=== PATIENT | male | born 1955 | race Caucasian/White ===

== ENCOUNTER → 2016-08-14 11:05 | Outpatient (CLI) | payer MEDICARE ==
[2015-11-30 13:38] VITALS: BMI 21.4
[~2016-08-14 11:05] MED LIST: ASPIRIN325 MG PO; DALIRESP500 MCG PO; FLORASTOR250 MG PO; GABAPENTIN100 MG PO; GLUCOPHAGE1000 MG PO; HYDROCODONE-APA1 TAB PO; IPRAT-ALBUT 0.5-3 ML INH; JANUVIA100 MG PO; LEVAQUIN750 MG PO; LEVEMIR100 U/M1 SC; MUCINEX DM ER1 EAC1 PO; NICODERM C1 PATCH .2 TRANSDERM; PEPCID20 MG PO; PRAVACHOL20 MG PO; PREDNISONE10 MG PO; PREDNISONE20 MG PO; SINGULAIR10 MG PO; SYMBICORT 16010.2 GM INH; TESSALON PERLE100 MG PO
== END | disposition home or self-care (01) ==
LOC: D.CT 11:00
DX: R93.8 Abnormal findings on diagnostic imaging of other specified body structures (principal)

== ENCOUNTER → 2016-09-14 07:42 | Outpatient (CLI) | payer MEDICARE ==
[2015-11-30 13:38] VITALS: BMI 21.4
== END ==
LOC: D.MRI 07:42
DX: M54.5 Low back pain (principal)

== ENCOUNTER 2018-05-01 11:23 | Inpatient (IN) | payer MEDICARE ==
[2018-05-01] VITALS (7 sets, daily range): BP systolic 176–196; BP diastolic 74–95; BMI 25.9; BMI 42.5
[~2018-05-01] VITALS: Ht 175.3 cm; Wt 130.2 kg
--- NOTE | ~2018-05-01 | HEMODYNAMI ---
PATIENT:MICHEAL POWELL MEDICAL RECORD: [id number] : 53 LOCATION:D.CAT ADMISSION DATE: 05/01/18 Generatedon:05/01/201815:57 Patient name: MICHEAL POWELL Patient #: [id number] SSN: : 1955 Date of study: 05/01/2018 Page: Of Hemodynamic Procedure Report Patient Data Patient Demographics Procedure consent was obtained First Name: MICHEAL Gender: Male Last Name: ANDRE : 1955 [facility] Initial: TAM Age: 62 year(s) Patient #: [id number] Race: Additional ID: [id number] Contact details [address]: [address] [place] [address] ROAD State: [place] City: [place] Zip code: [address] Past Medical History Allergies: No known allergies Admission Admission Data Admission Date: 05/01/2018 Admission Time: 11:23 Lab Results Lab Result Date: 05/01/2018 Lab Result Time: 0:00 Biochemistry Name Units Result Min Max BUN mg/dl 32 --(----)-* 7 18 Creatinine mg/dl 1.4 --(----)*- 0.6 1.3 CBC Name Units Result Min Max Hemoglobin g/dl 15 --(-*--)-- 13.5 17.5 Procedure Procedure Types Cath Procedure Diagnostic Procedure [facility] w/Coronaries Sedation Charges Moderate Sedation up to 30 minutes Peripheral Cath Diagnostic Procedure Armature Varnisher Peripheral Procedures Chwmt-Ckuczua-Bpv-Off Procedure Description Procedure Date Procedure Date: 05/01/2018 Procedure Start Time: 14:04 Procedure End Time: 14:43 Procedure Staff Name Function Josefina Upton RN Nurse John Cantu MD Performing Physician Rosalio Jimenez RT Scrub Marryagnes Martinez RT Monitor Janice Curiel RT Monitor Procedure Data Cath Procedure Fluoroscopy Diagnostic fluoroscopy Total fluoroscopy Time: 4.6 time: 4.6 min min Diagnostic fluoroscopy Total fluoroscopy dose: dose: 1022 mGy 1022 mGy Contrast Material Contrast Material Type Amount (ml) Isovue 300 114 Entry Location Entry Primary Successful Side Size Upsize Upsize Entry Closure Marin ccessful Closure Location (Fr) 1 (Fr) 2 (Fr) Remarks Device Remarks Femoral Right 5 Fr Manual vein Compression Femoral Right 5 Fr Exoseal artery Estimated blood loss: 5 ml Diagnostic catheters Device Type Used For End Catheter Placement MULTIPACK JL 4.0 5Fr Procedure catheter DIAGNOSTIC JL 5 5Fr Procedure catheter ([id number]) MULTIPACK 3DRC 5Fr Procedure catheter MULTIPACK Pigtail 5 Fr Procedure catheter Procedure Complications No complications Procedure Medications Medication Administration Route Dosage Oxygen 6 l/min Dextrose 50% I.V. 12.5 g Versed I.V. 1 mg Fentanyl I.V. 50 mcg Lidocaine 2% added to field 20 Heparin Flush Bag added to field 2 bags (1000units/500ml NS) 0.9% NaCl I.V. 100 ml/hr Versed I.V. 0.5 mg Fentanyl I.V. 25 mcg Narcan I.V. 0.4 mg Oxygen NRB 16 l/min unlisted medication 0.63 mg Oxygen 6 l/min Oxygen Hemodynamics Rest HGB: 15 (g/dl) Heart Rate: 84 (bpm) Pressure Samples Time Site Value (mmHg) Purpose Heart Use Rate(bpm) 14:19 LV 220/-10,26 Snapshot 101 14:24 AO 265/104(152) Snapshot 108 Gradients Valve Time Site Site Mean SEP/DFP Peak To Heart Use 1 2 (mmHg) (sec/min) Peak Rate (mmHg) (bpm) Aortic 14:20 LV AO 101 Snapshots Pre Cath Intra NCS Post Cath Vital Signs Time Heart Resp SPO2 etCO2 NIBP (mmHg) Rhythm Pain Sedation Rate (ipm) (%) (mmHg) Status Level (bpm) 13:51:36 87 36 100 18 181/106(140) NSR 0 (11) 10(A) , No pain 13:56:02 86 28 100 15.8 183/105(121) NSR 0 (11) 10(A) , No pain 14:01:01 89 19 100 3.7 Measuring NSR 0 (11) 10(A) , No pain 14:05:48 78 16 95 12 111/63(85) NSR 0 (11) 9(A) , No pain 14:11:52 85 14 97 0 158/99(128) NSR 0 (11) 9(A) , No pain 14:17:14 92 12 96 0 204/105(145) NSR 0 (11) 9(A) , No pain 14:21:57 99 14 97 0 211/118(148) NSR 0 (11) 9(A) , No pain 14:26:39 105 14 98 0 219/123(158) NSR 0 (11) 9(A) , No pain 14:31:26 109 16 98 0 224/118(160) NSR 0 (11) 9(A) , No pain 14:36:17 110 18 98 0 221/122(157) NSR 0 (11) 9(A) , No pain 14:41:05 110 19 97 0 225/121(155) NSR 0 (11) 9(A) , No pain 15:16:50 105 28 97 0 210/114(161) NSR 0 (11) 9(A) , No pain 15:21:39 106 27 97 0 205/131(155) NSR 0 (11) 9(A) , No pain 15:26:38 103 29 0 Measuring NSR 0 (11) 9(A) , No pain 15:27:44 117 28 0 Disturbed NSR 0 (11) 9(A) , No pain 15:32:42 98 25 66 0 Measuring NSR 0 (11) 9(A) , No pain 15:33:23 140 17 76 0 Disturbed NSR 0 (11) 9(A) , No pain 15:38:22 11 81 0 Measuring NSR 0 (11) 9(A) , No pain 15:39:03 98 21 81 0 Disturbed NSR 0 (11) 9(A) , No pain 15:44:02 93 18 0 Measuring NSR 0 (11) 9(A) , No pain 15:45:10 92 19 74 0 Out of range NSR 0 (11) 9(A) , No pain 15:50:09 91 26 72 0 Measuring NSR 0 (11) 9(A) , No pain 15:50:44 0 Out of range NSR 0 (11) 9(A) , No pain 15:54:19 0 No Cuff NSR 0 (11) 9(A) , No pain Medications Time Medication Route Dose Verified Delivered Reason Notes Effectiveness by by 13:49:05 Oxygen simple 6 l/min John Buffie for low 02 pt sta sonia mask Pepe Upton RN sats sob, and has performed one of his daily asthma inhaler doses today, dr cantu notified. pt has rhonch bilat lung martinez. 13:50:06 Lidocaine 2% added to 20ml John John for local field vial Pepe Cantu MD anesthetic 13:50:21 Heparin Flush added to 2 bags John John used for Bag field Pepe Cantu MD procedure (1000units/500ml NS) 13:50:27 0.9% NaCl I.V. 100 John Buffie Per ml/hr Pepe Upton RN physician 13:57:13 Versed I.V. 1 mg John Buffie for Pepe Upton RN sedation 13:57:19 Fentanyl I.V. 50 mcg John Buffie for Pepe Upton RN sedation 14:04:47 Versed I.V. 0.5 mg John Buffie for Pepe Upton RN sedation 14:04:53 Fentanyl I.V. 25 mcg John Buffie for Pepe Upton RN sedation 14:15:10 Dextrose 50% I.V. 12.5 g John Buffie Per Pepe Upton RN physician 14:54:15 Narcan I.V. 0.4 mg John Buffie for Pepe Upton RN arrousal 15:12:07 Oxygen NRB 16 John Buffie for low 02 pt l/min Pepe Upton RN sats remains confused, updraft treatment and abg ordered to be performed in [employer]. 15:18:54 Xopenex updraft updraft 0.63 mg John Buffie Per treatment Pepe Upton RN physician 15:30:24 Oxygen simple 6 l/min John Buffie for low 02 mask Pepe Upton RN sats 15:37:59 Oxygen simple removed John Buffie for low 02 mask Pepe Upton RN sats Procedure Log Time Note 12:54:45 Pt brought to [employer], appears sleepy, able to answer some questions appropriately. States very SOB. 13:30:58 Rosalio Jimenez RT(R) sent for patient. Start room use. 13:33:43 Signed procedure consent form obtained from patient. 13:33:51 H&P Date Dictated: 04/18/2018 Within 30 days and on chart., H&P Addendum completed by physician on day of procedure. (MUST COMPLETE FOR ALL OUTPATIENTS). 13:33:53 Time tracking: Regular hours (M-F 7:00 - 5:00) 13:33:56 Plan of Care:Hemodynamics will remain stable., Cardiac rhythm will remain stable., Comfort level will be maintained., Respiratory function will remain adequate., Patient/ family verbilizes understanding of procedure., Procedure tolerated without complication., Recovers from procedure without complications.. 13:34:15 Patient allergic to No known allergies 13:39:41 Patient received from Pre/Post Procedure Room to CCL 1 Alert and oriented. Tansferred to table in Supine position. 13:39:42 Warm blankets applied, and sindi hugger turned on for patient comfort. 13:39:42 Correct patient and procedure confirmed by team. 13:39:43 ECG and BP/O2 sat monitors applied to patient. 13:49:05 Oxygen 6 l/min simple mask was administered by Josefina Upton RN; for low 02 sats; pt states sob, and has performed one of his daily asthma inhaler doses today, dr cantu notified. pt has rhonch bilat lung martinez. 13:50:06 Lidocaine 2% 20ml vial added to field was administered by John Cantu MD; for local anesthetic; 13:50:14 Vital chart was started 13:50:21 Heparin Flush Bag (1000units/500ml NS) 2 bags added to field was administered by John Cantu MD; used for procedure; 13:50:27 0.9% NaCl 100 ml/hr I.V. was administered by Josefina Upton RN; Per physician; 13:53:14 Baseline sample Acquired. 13:53:18 Rhythm: sinus rhythm 13:53:19 Full Disclosure recording started 13:53:20 Pre-procedure instructions explained to patient. 13:53:20 Pre-op teaching completed and patient verbalized understanding. 13:53:21 Family in patients room. 13:53:23 Patient NPO since Midnight. 13:53:25 Is patient on blood thinner?No 13:53:26 Patient diabetic? Yes. 13:53:28 If diabetic: On Metformin? Yes 13:53:30 If on Metformin: Last Dose? 04/29/2018 13:53:33 Previous problem with sedation/anesthesia? No ? 13:53:34 Snore? Yes 13:53:35 Sleep apnea? Yes 13:53:36 Deviated septum? No 13:53:37 Opens mouth fully? Yes 13:53:38 Sticks out tongue? Yes 13:53:41 Airway obstruction? Yes ASTHMA, COPD 13:53:44 Dentures? Yes OUT 13:53:49 Pre procedure: right dorsailis pedis pulse Doppler 13:53:52 Pre procedure: left dorsailis pedis pulse 1+ Palpable, but thready & weak; easily obliterated 13:53:55 Patient pain scale 0/10 ?. 13:54:03 IV patent on arrival in right hand with 0.9% NaCl at [facility]. 13:54:07 Lab results completed and on chart. 13:54:10 Bilateral groins area was prepped with chlora-prep and draped in sterile fashion 13:54:11 Alarms reviewed by R. N. 13:54:11 Sharps counted by scrub and verified by R.N. 13:54:15 Use device set Femoral Dx 13:54:17 ACIST Syringe (06482) opened to sterile field. 13:54:18 Bag Decanter (2002S) opened to sterile field. 13:54:19 ACIST Hand Control (33781) opened to sterile field. 13:54:19 ACIST Manifold (84282) opened to sterile field. 13:54:20 Tegaderm 4 x 4 (1626W) opened to sterile field. 13:54:21 Medline Cath Pack ([id number]) opened to sterile field. 13:54:22 DIAGNOSTIC WIRE .035 260cm J wire (168038) opened to sterile field. 13:54:23 DIAGNOSTIC Multipack 5Fr catheter set (NO5495) opened to sterile field. 13:54:33 SHEATH 6FR Barnett ([id number]) opened to sterile field. 13:55:58 --------ALL STOP TIME OUT------ 13:55:59 Final Timeout: patient, procedure, and site verified with staff and physician. All members of the team are in agreement. 13:56:00 Bilateral groins site verified by team. 13:56:05 Physical assessment completed. ASA score P 2 - A patient with mild systemic disease as per John Cantu MD. 13:56:08 Sedation plan: IV Moderate Sedation Medication:Versed, Fentanyl 13:57:13 Versed 1 mg I.V. was administered by Josefina Upton RN; for sedation; 13:57:19 Fentanyl 50 mcg I.V. was administered by Josefina Upton RN; for sedation; 14:03:42 Procedure started. 14:03:56 Zero performed for pressure channel P1 14:04:19 Local anesthetic to right femoral artery with Lidocaine 2% by John Cantu MD.INITIAL ACCESS ONLY 14:04:47 Versed 0.5 mg I.V. was administered by Josefina Upton RN; for sedation; 14:04:53 Fentanyl 25 mcg I.V. was administered by Josefina Upton RN; for sedation; 14:09:22 A 5 Fr sheath was inserted into the Right Femoral vein 14:10:14 Lab Result : Hemoglobin 15 g/dl 14:10:14 Lab Result : BUN 32 mg/dl 14:10:14 Lab Result : Creatinine 1.4 mg/dl 14:10:48 A 5 Fr sheath was inserted into the Right Femoral artery 14:11:50 A MULTIPACK JL 4.0 5Fr catheter was advanced over the wire and used for Procedure. 14:12:41 unable to engage LCA 14:12:42 Catheter removed. 14:12:51 A DIAGNOSTIC JL 5 5Fr catheter ([id number]) was advanced over the wire and used for Procedure. 14:15:09 LCA angiography performed. 14:15:10 Dextrose 50% 12.5 g I.V. was administered by Josefina Upton RN; Per physician; 14:15:52 Pt became diaphoretic, suspected low glucose level. 14:16:20 Catheter exchanged over wire. 14:17:55 A MULTIPACK 3DRC 5Fr catheter was advanced over the wire and used for Procedure. 14:18:04 RCA angiography performed. 14:18:17 Catheter exchanged over wire. 14:19:17 A MULTIPACK Pigtail 5 Fr catheter was advanced over the wire and used for Procedure. 14:19:22 LV gram done using TOSCANO 14:19:30 Injector settings: Ml/sec: 102, Volume: 20, 14:19:50 LV hemodynamics recorded. 14:20:15 EF : 25 % 14:23:28 PIGTAIL PULLED DOWN FOR AFRO 14:24:32 Abdominal angiogram w/ runoff was performed. 14:27:44 Right leg runoff performed. 14:27:45 Left leg runoff performed. 14::51 Catheter removed. 14::57 EXOSEAL 5Fr (EX500) opened to sterile field. 14:29:07 Sheath removed intact; hemostasis achieved with Exoseal to the Right Femoral artery. 14:29:23 Sheath removed intact; hemostasis achieved with Manual Compression to the Right Femoral vein. 14:30:06 Procedure ended.(Physican Out) 14:30:55 Fluoroscopy time 04.60 minutes. 14::58 Flurop Dose total: 1022 14::58 Fluoroscopy dose: 1022 mGy 14:31:02 Contrast amount:Isovue 300 114ml. 14:31:03 Sharps counted by scrub and verified by R.N. 14:31:06 Post-op/insertion site Right Femoral artery dressed using a 4 x 4 and Tegaderm. 14:31:10 Post right femoral artery:stable, soft, clean and dry 14:31:15 Post-procedure physical assessment completed. ASA score P 2 - A patient with mild systemic disease as per John Cantu MD. 14:31:25 Post procedure rhythm: sinus tachycardia 14:31:32 Estimated blood loss: 5 ml 14:31:33 Post procedure instruction explained to patient.Patient verbalizes understanding. 14:31:33 Patient needs reinforcement of post procedure teaching. 14:32:05 Procedure type changed to Cath procedure, Diagnostic procedure, LHC, LHC w/Coronaries, Sedation Charges, Moderate Sedation up to 30 minutes, Peripheral Cath Diagnostic Procedure, Armature Varnisher Peripheral Procedures, Hsjkp-Uolncaf-Psh-Off 14:33:53 Procedure and supply charges have been captured, reviewed, submitted and are correct. 14:35:16 Procedure Complication : No complications 14:43:45 Vital chart was stopped 14:43:46 See physician's report for complete and final results. 14:43:51 Full Disclosure recording stopped 14::51 Procedure ended. 14:54:15 Narcan 0.4 mg I.V. was administered by Josefina Upton RN; for arrousal; 14:56:07 Pt cont to be snorous in respiration. Narcan used after FSBS result was 147 mg/dl. No changes noted to alertness. 15:00:30 Pt with improved alertness with romazicon. 15:12:07 Oxygen 16 l/min NRB was administered by Josefina Upton RN; for low 02 sats; pt remains confused, updraft treatment and abg ordered to be performed in grass farm [employer]. 15:14:07 Vital chart was started 15:18:54 Xopenex updraft 0.63 mg updraft treatment was administered by Josefina Upton RN; Per physician; 15:30:24 Oxygen 6 l/min simple mask was administered by Josefina Upton RN; for low 02 sats; 15:37:59 Oxygen removed simple mask was administered by Josefina Upton RN; for low 02 sats; 15:38:41 PORTABLE CHEST XRAY ORDERED. XRAY NOTIFIED 15:43:44 16fr standard chowdhury inserted no resistance clear yellow urine obtained. 15:44:01 CHOWDHURY 16FR w/Drainage Bag ([id number]) opened to sterile field. 15:44:37 CALLED FOR ICU BED 15:47:10 PATIENT TO BE TRANSFERRED TO ICU ROOM 2316 15:47:41 Report given to ICU. 15:53:08 chest xray completed. bipap intiated by respiratory. 15:56:44 Patient transfered to ICU with Bed. 15:56:55 End room use (Document Last) 15:57:26 Vital chart was stopped Device Usage Item Name Manufacture Quantity Catalog Hospital Part Current Minimal L ot# / Number Charge Number Stock Stock Serial# Code ACIST Acist 1 26913 158031 255577 644545 20 Syringe Medical (82402) Systems Inc Bag Microtek 1 2001S 715151 13554 745289 5 Decanter Medical Inc. () ACIST Hand Acist 1 67191 842784 292212 244803 5 Control Medical (55352) Systems Inc ACIST Acist 1 13979 798900 653779 249279 5 Manifold Medical (87021) Systems Inc Tegaderm 4 3M 1 1626W 578497 166047 409620 5 x 4 (1626W) Medline Medline 1 [id number] 511884 12989 843043 5 Cath Pack ([id number]) DIAGNOSTIC St Shane 1 257599 937946 200654 272302 30 WIRE .035 260cm J wire (768939) DIAGNOSTIC Cardinal 1 BP6312 900991 77480 703704 30 Anita Margarita 5Fr catheter set (HF3012) SHEATH 6FR Terumo 1 NVE505 378566 560675 181986 40 Barnett (ERO150) MULTIPACK Cardinal 1 115847 5 JL 4.0 5Fr Health catheter DIAGNOSTIC Cardinal 1 [id number] 161796 124055 540473 5 JL 5 5Fr Health catheter (352837R) MULTIPACK Cardinal 1 250665 5 3DRC 5Fr Health catheter MULTIPACK Cardinal 1 739422 5 Pigtail 5 Health Fr catheter EXOSEAL 5Fr Cardinal 1 EX500 173175 752864 634615 10 (EX500) Health CHOWDHURY 16FR Bard 1 [id number] 395798 125335 963287 5 w/Drainage Bag (670520V) Signature Audit [place] Stage Time Signature Unsigned Intra-Procedure 05/01/2018 Marry Martinez 2:45:57 PM RT(R) RT(R) 05/01/2018 2:53:37 PM Intra-Procedure 05/01/2018 Janice 3:57:23 PM Counts RT(R) Signatures Monitor : Marry Martinez Signature : RT Date : Time : Monitor : Janice Signature : Counts RT Date : Time : [address] [address]
[2018-05-01] MEDS ORDERED: FUROSEMIDE40 MG PO (11:49)
[2018-05-01] MEDS ORDERED: GLUCOPHAGE1000 MG PO (11:49)
[2018-05-01] MEDS ORDERED: GLIMEPIRIDE1 MG PO (11:49)
[2018-05-01] MEDS ORDERED: AMBIEN10 MG PO (11:49)
[2018-05-01 12:25] LABS: BASOPHILS 0.6 % (0-2); EOSINOPHILS 1.4 % (0-7); HEMATOCRIT 47.4 % (42.0-54.0); IMMATURE GRANULOCYTES 0.3 % (0-5); LYMPHOCYTES 21.2 % (15-50); MCH 27.3 pg (26.0-34.0); MCHC 31.6 g/dL (31.0-37.0); MCV 86.2 fL (80.0-100.0); MEAN PLATELET VOLUME 9.2 fL (7.4-10.4); MONOCYTES 19.9 % (2-11); NEUTROPHILS 56.6 % (40-80); RDW 16.4 % (11.5-14.5); WBC 7.3 10x3/uL (4.8-10.8)
[2018-05-01 12:44] LABS: ANION GAP 7.9 mmol/L (8-16); CALCIUM 8.9 mg/dL (8.5-10.1); CARBON DIOXIDE 32.7 mmol/L (21.0-32.0); CREATININE - SERUM 1.4 mg/dL (0.6-1.3); POTASSIUM - SERUM 3.6 mmol/L (3.5-5.1)
[2018-05-01 12:46] LABS: PLATELET COUNT 302 10x3/uL (130-400)
[2018-05-02] VITALS (25 sets, daily range): BP systolic 150–197; BP diastolic 69–96; Ht 175.3 cm; Wt 130.2 kg
[2018-05-02 04:33] LABS: BASOPHILS 0.1 % (0-2); EOSINOPHILS 0 % (0-7); HEMATOCRIT 49.2 % (42.0-54.0); HEMOGLOBIN 15.5 g/dL (13.5-17.5); IMMATURE GRANULOCYTES 0.4 % (0-5); LYMPHOCYTES 3.9 % (15-50); MCH 27.1 pg (26.0-34.0); MCHC 31.5 g/dL (31.0-37.0); MEAN PLATELET VOLUME 10.2 fL (7.4-10.4); MONOCYTES 3.6 % (2-11); PLATELET COUNT 350 10x3/uL (130-400); RBC 5.72 10x6/uL (4.20-6.10); RDW 16.5 % (11.5-14.5)
[2018-05-02 04:51] LABS: CALCIUM 9.1 mg/dL (8.5-10.1); CREATININE - SERUM 1.3 mg/dL (0.6-1.3)
[2018-05-02 04:57] LABS: WBC 13.7 10x3/uL (4.8-10.8)
[2018-05-02 05:04] LABS: ANION GAP 19.8 mmol/L (8-16); CARBON DIOXIDE 23.9 mmol/L (21.0-32.0); POTASSIUM - SERUM 4.7 mmol/L (3.5-5.1)
[2018-05-03] VITALS (15 sets, daily range): BP systolic 103–191; BP diastolic 27–89
[2018-05-03 04:33] LABS: BASOPHILS 0 % (0-2); EOSINOPHILS 0 % (0-7); HEMATOCRIT 44.6 % (42.0-54.0); HEMOGLOBIN 14.1 g/dL (13.5-17.5); IMMATURE GRANULOCYTES 0.4 % (0-5); LYMPHOCYTES 6.5 % (15-50); MCH 27.3 pg (26.0-34.0); MCHC 31.6 g/dL (31.0-37.0); MCV 86.4 fL (80.0-100.0); MEAN PLATELET VOLUME 9.5 fL (7.4-10.4); MONOCYTES 5.2 % (2-11); NEUTROPHILS 87.9 % (40-80); PLATELET COUNT 324 10x3/uL (130-400); RBC 5.16 10x6/uL (4.20-6.10); RDW 16.7 % (11.5-14.5)
[2018-05-03 04:37] LABS: WBC 17.4 10x3/uL (4.8-10.8)
[2018-05-03 05:27] LABS: ANION GAP 14.9 mmol/L (8-16); CALCIUM 9.2 mg/dL (8.5-10.1); CARBON DIOXIDE 26.3 mmol/L (21.0-32.0); POTASSIUM - SERUM 4.2 mmol/L (3.5-5.1)
[2018-05-03 05:32] LABS: CREATININE - SERUM 1.9 mg/dL (0.6-1.3)
== END 2018-05-03 19:06 | disposition home or self-care (01) | DRG 189 ==
LOC: D.CATH 11:23 → D.ICU 11:23 → D.CATH 13:30 → D.ICU 16:10 → D.CATH 16:24 → D.ICU 16:25 → D.CATH 05-07 13:00
PROVIDERS: Internal Medicine Cardiovascular Disease; Internal Medicine Nephrology
PROC: B2151ZZ Fluoroscopy of Left Heart using Low Osmolar Contrast (ICD-10-PCS; 2018-05-01)
PROC: 4A023N7 Measurement of Cardiac Sampling and Pressure, Left Heart, Percutaneous Approach (ICD-10-PCS; 2018-05-01)
PROC: 5A09357 Assistance with Respiratory Ventilation, Less than 24 Consecutive Hours, Continuous Positive Airway Pressure (ICD-10-PCS; principal; 2018-05-01 13:30)
PROC: B2111ZZ Fluoroscopy of Multiple Coronary Arteries using Low Osmolar Contrast (ICD-10-PCS; 2018-05-01 13:30)
DX: J96.21 Acute and chronic respiratory failure with hypoxia (principal); I63.9 Cerebral infarction, unspecified; I50.23 Acute on chronic systolic (congestive) heart failure; N17.9 Acute kidney failure, unspecified; I69.354 Hemiplegia and hemiparesis following cerebral infarction affecting left non-dominant side; I42.9 Cardiomyopathy, unspecified; I25.119 Atherosclerotic heart disease of native coronary artery with unspecified angina pectoris; J96.22 Acute and chronic respiratory failure with hypercapnia; I11.0 Hypertensive heart disease with heart failure; E11.9 Type 2 diabetes mellitus without complications; E78.5 Hyperlipidemia, unspecified; I70.211 Atherosclerosis of native arteries of extremities with intermittent claudication, right leg; F17.200 Nicotine dependence, unspecified, uncomplicated; J43.9 Emphysema, unspecified